=== PATIENT | male | born 1980 | race Caucasian/White ===

== ENCOUNTER 2018-02-03 10:43 | Inpatient (IN) ==
[2018-02-03] MEDS ORDERED: IOPAMIDOL 100 ML BOTTLE IV ONE (10:44)
[2018-02-03] MEDS ORDERED: ONDANSETRON 4 MG/2 ML VIAL IV ONE (11:07)
[2018-02-03] MEDS: METOPROLOL TARTRATE 5 MG/5 ML VIAL IV SCH ×3 (11:08→15:56)
[2018-02-03] MEDS ORDERED: 0.9 % SODIUM CHLORIDE 1,000 ML IV ONE ×2 (11:12→11:14)
[2018-02-03] MEDS ORDERED: cefTRIAXone 2 GM VIAL IV ONE (11:16)
[2018-02-03] MEDS ORDERED: HYDROmorphone 2 MG/ML VIAL IV PRN ×2 (11:18→20:27)
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
[2018-02-03] MEDS ORDERED: METOPROLOL TARTRATE 25 MG TABLET PO ONE (11:28)
[2018-02-03 11:29] LABS: Basophils # (Auto) 0.1 K/mcL (0.0-0.3); Basophils % (Auto) 0.5 % (0.0-2.0); Eosinophils # (Auto) 0 K/mcL (0.0-0.7); Eosinophils % (Auto) 0.2 % (0.0-7.0); Granulocytes % (Auto) 84.9 % (38.0-78.0); Lymphocytes # (Auto) 0.8 K/mcL (1.5-4.8); Lymphocytes % (Auto) 6.5 % (15.5-49.0); Mean Cell Volume 84.9 fL (80.0-100.0); Mean Corpuscular HGB Conc 33.7 g/dL (31.0-36.0); Mean Corpuscular Hemoglobin 28.6 pg (26.0-34.0); Monocytes % (Auto) 7.9 % (1.0-12.0); Platelet Count 635 K/mcL (140-440); RBC 4.47 M/mcL (4.50-5.90); Red Cell Distribution Width 18.9 % (11.5-14.5)
[2018-02-03 11:55] LABS: ALT/SGPT 11 U/l (0-40); Alkaline Phosphatase 143 U/L (39-117); Amylase 19 U/L (28-100); Blood Urea Nitrogen 8 mg/dl (6-20); Lipase 11 U/L (7-60)
[2018-02-03] MEDS ORDERED: ACETAMINOPHEN 325 MG TABLET PO ONE (11:56)
[2018-02-03 12:02] LABS: Creatine Kinase MB 1.5 ng/ml (0-4.9)
[2018-02-03 12:20] LABS: Creatine Kinase 179 IU/L (24-195)
[2018-02-03] MEDS ORDERED: POTASSIUM CHLORIDE 20 MEQ in DEXTROSE 5% IN WATER 250 ML IV ONE (12:48)
--- NOTE | 2018-02-03 13:19 | Cat Scan Report ---
CLINICAL INFORMATION: Pyelonephritis COMPARISON: 01/02/2018 TECHNIQUE: Following enteric contrast, 80 cc of Isovue-300 were injected intravenously, and 60 seconds later, 0.625 mm helical slices were obtained from the mid heart through the subtrochanteric regions. Following reconstruction, 2.5 mm sagittal, coronal and axial reformatted images were processed and reviewed at bone, lung and soft tissue windows. Five minutes later, 0.625 mm helical slices were obtained from the mid heart through the kidneys and viewed at soft tissue windows.The exam was performed using radiation dose optimization techniques including, but not limited to, automated exposure control, adjustment of the mA and/or kV according to patient size and use of iterative reconstruction technique. FINDINGS: Lung bases show no abnormality - no effusion. Visualized heart is normal. Images through the abdomen show the gallbladder and bile ducts, liver, both kidneys, adrenal glands, spleen, pancreas and aorta, including aortic branches, are normal in size, configuration and attenuation without focal lesion. Images through the pelvis show prostate, seminal vesicles to be normal. Urinary bladder is better distended on today's exam shows all only minimal thickening of the urinary bladder wall at the base region - no definite mass. The stomach, small/large bowel and appendix are normal. No free air, free fluid or adenopathy. Bone windows show posterior fusion T12-L3 with a mild chronic L1 compression fracture. There are also wide laminectomy changes at L1. Spinal stimulator electrodes and lead wires are normal IMPRESSION: 1. Both kidneys, upper collecting systems and ureters are normal. No CT evidence for pyelonephritis. 2. Urinary bladder is more optimally distended on today's CT and there is no evidence of a mass in the left lateral bladder base which was previously suspected. There is is only minimal equivocal wall thickening. Please correlate with cystoscopy examination. 3. Mild chronic L1 compression fracture with posterior fusion T12-L3 stable. Interpreted and Authenticated by: Julio Watson 02/03/18
[2018-02-03] MEDS ORDERED: 0.9 % SODIUM CHLORIDE 1,000 ML IV SCH (13:45)
[2018-02-03] MEDS ORDERED: 0.9 % SODIUM CHLORIDE 250 ML IV ONE ×2 (14:38→15:28)
[2018-02-03] MEDS ORDERED: ONDANSETRON ODT 4 MG TABLET SL PRN ×2 (14:38→15:28)
[2018-02-03] MEDS ORDERED: MAGNESIUM HYDROXIDE 30 ML ORAL.SUSP PO PRN ×2 (14:38→15:28)
[2018-02-03] MEDS ORDERED: PROCHLORPERAZINE 10 MG/2 ML VIAL IV PRN ×2 (14:38→15:28)
[2018-02-03] MEDS ORDERED: ACETAMINOPHEN 325 MG TABLET PO PRN (14:38)
[2018-02-03] MEDS ORDERED: cefTRIAXone 1 GM in DEXTROSE 5% IN WATER 50 ML IV SCH (14:45)
[2018-02-03] MEDS ORDERED: 0.9 % SODIUM CHLORIDE 500 ML IV SCH (14:46)
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
[2018-02-03] MEDS: 0.9 % SODIUM CHLORIDE 500 ML IV SCH ×2 (15:56→20:44)
[2018-02-03] MEDS ORDERED: CYCLOBENZAPRINE 10 MG TABLET PO SCH (16:00)
[2018-02-03 16:17] LABS: Appearance,Urine CLEAR; Bilirubin,Urine NEG (NEG); Color,Urine YELLOW; Glucose,Urine (UA) NEGATIVE (NEG); Leukocyte Esterase,Urine NEG /uL (NEG); Protein,Urine NEG (NEG); Specific Gravity,Urine 1.018 (1.000-1.035); Urine Blood NEG mg/dL (<0.03); Urobilinogen,Urine NEG (NEG)
[2018-02-03] MEDS: METOPROLOL SUCCINATE 25 MG TAB.XL.24H PO SCH (17:22)
[2018-02-03] MEDS: HYDROmorphone 2 MG TABLET PO PRN ×2 (17:22→22:34)
[2018-02-03] MEDS: NICOTINE 21 MG PATCH TOPICAL SCH (18:13)
[2018-02-03] MEDS: GABAPENTIN 400 MG CAPSULE PO SCH (19:58)
[2018-02-03] MEDS: CYCLOBENZAPRINE 10 MG TABLET PO PRN (19:58)
[2018-02-03] MEDS: tiZANidine 4 MG TABLET PO SCH (19:58)
[2018-02-03] MEDS: DOCUSATE SODIUM 100 MG CAPSULE PO SCH (19:59)
[2018-02-03] MEDS: SENNOSIDES 1 TABLET PO SCH (19:59)
[2018-02-03] MEDS ORDERED: HYDROmorphone 2 MG/ML VIAL ONE (20:42)
[2018-02-03] MEDS ORDERED: SENNOSIDES 1 TABLET PO SCH (21:00)
[2018-02-03] MEDS ORDERED: DOCUSATE SODIUM 100 MG CAPSULE PO SCH (21:00)
[2018-02-03] MEDS: MELOXICAM 7.5 MG TABLET PO PRN (21:04)
[2018-02-03] MEDS: DULoxetine 30 MG CAPSULE PO SCH (21:04)
[2018-02-03] MEDS ORDERED: 0.9 % SODIUM CHLORIDE 10 ML SYRINGE IV SCH (22:00)
[2018-02-03] MEDS: 0.9 % SODIUM CHLORIDE 10 ML SYRINGE IV SCH (22:34)
[2018-02-03] MEDS: ACETAMINOPHEN 325 MG TABLET PO PRN (23:43)
[2018-02-04] MEDS: 0.9 % SODIUM CHLORIDE 500 ML IV SCH ×5 (02:36→21:09)
[2018-02-04] MEDS: HYDROmorphone 2 MG TABLET PO PRN ×3 (04:04→23:33)
[2018-02-04] MEDS: CYCLOBENZAPRINE 10 MG TABLET PO PRN ×3 (04:04→23:30)
[2018-02-04] MEDS: 0.9 % SODIUM CHLORIDE 10 ML SYRINGE IV SCH ×3 (05:07→23:04)
[2018-02-04 06:44] LABS: Mean Cell Volume 87.5 fL (80.0-100.0); Mean Corpuscular HGB Conc 32.6 g/dL (31.0-36.0); Mean Corpuscular Hemoglobin 28.5 pg (26.0-34.0); Platelet Count 439 K/mcL (140-440); RBC 3.86 M/mcL (4.50-5.90); Red Cell Distribution Width 18.8 % (11.5-14.5)
[2018-02-04 07:24] LABS: ALT/SGPT 10 U/l (0-40); Albumin 3.1 gm/dL (3.2-5.2); Albumin/Globulin Ratio 0.9 (1.0-2.3); Alkaline Phosphatase 151 U/L (39-117); Bilirubin,Direct < 0.2 mg/dL (0.0-0.3); Blood Urea Nitrogen 9 mg/dl (6-20); Gamma Glutamyl Transpeptidase 75 U/L (8-61); Uric Acid 3.5 mg/dL (2.5-8.0)
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
[2018-02-04 07:45] LABS: Anisocytosis 1+ (NONE SEEN); Basophils % (Manual) 1 % (0-2); Eosinophils % (Manual) 2 % (0-7); Lymphocytes % 17 % (15-49); Monocytes % (Manual) 7 % (1-12); Platelet Estimate NORMAL (NORMAL); RBC Morphology ABNORMAL (NORMAL); Segmented Neutrophils % 73 % (38-78)
[2018-02-04] MEDS ORDERED: FESOTERODINE FUMARATE 4 MG PO SCH (09:00)
[2018-02-04] MEDS ORDERED: ENOXAPARIN 40 MG/0.4 ML SYRINGE SQ SCH (09:00)
[2018-02-04] MEDS: METOPROLOL SUCCINATE 25 MG TAB.XL.24H PO SCH (09:24)
[2018-02-04] MEDS: GABAPENTIN 400 MG CAPSULE PO SCH ×3 (09:24→20:57)
[2018-02-04] MEDS: tiZANidine 4 MG TABLET PO SCH ×3 (09:25→20:57)
[2018-02-04] MEDS: NICOTINE 21 MG PATCH TOPICAL SCH (09:25)
[2018-02-04] MEDS: DULoxetine 30 MG CAPSULE PO SCH (09:25)
[2018-02-04] MEDS: DOCUSATE SODIUM 100 MG CAPSULE PO SCH ×3 (09:25→20:57)
[2018-02-04] MEDS: cefTRIAXone 1 GM VIAL IV SCH (09:25)
[2018-02-04] MEDS: ENOXAPARIN 40 MG/0.4 ML SYRINGE SQ SCH (09:28)
[2018-02-04] MEDS: Alfuzosin Hcl [Alfuzosin Hcl Er] 10 MG PO SCH (09:39)
[2018-02-04] MEDS: ACETAMINOPHEN 325 MG TABLET PO PRN ×2 (10:43→16:28)
[2018-02-04] MEDS: rOPINIRole 0.25 MG TABLET PO SCH ×2 (10:43→20:57)
[2018-02-04] MEDS: MELOXICAM 7.5 MG TABLET PO PRN (10:47)
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
[2018-02-04] MEDS: SENNOSIDES 1 TABLET PO SCH (20:57)
[2018-02-05] MEDS: HYDROmorphone 2 MG TABLET PO PRN (03:17)
[2018-02-05] MEDS: MELOXICAM 7.5 MG TABLET PO PRN (03:18)
[2018-02-05] MEDS: 0.9 % SODIUM CHLORIDE 500 ML IV SCH (05:32)
[2018-02-05] MEDS: 0.9 % SODIUM CHLORIDE 10 ML SYRINGE IV SCH (05:33)
[2018-02-05] MEDS: tiZANidine 4 MG TABLET PO SCH (09:11)
[2018-02-05] MEDS: DULoxetine 30 MG CAPSULE PO SCH (09:11)
[2018-02-05] MEDS: GABAPENTIN 400 MG CAPSULE PO SCH (09:11)
[2018-02-05] MEDS: DOCUSATE SODIUM 100 MG CAPSULE PO SCH (09:11)
[2018-02-05] MEDS: METOPROLOL SUCCINATE 25 MG TAB.XL.24H PO SCH (09:11)
[2018-02-05] MEDS: ENOXAPARIN 40 MG/0.4 ML SYRINGE SQ SCH (09:11)
[2018-02-05] MEDS: rOPINIRole 0.25 MG TABLET PO SCH (09:12)
[2018-02-05] MEDS: cefTRIAXone 1 GM VIAL IV SCH (09:12)
[2018-02-05] MEDS: Alfuzosin Hcl [Alfuzosin Hcl Er] 10 MG PO SCH (09:13)
[2018-02-05] MEDS: CYCLOBENZAPRINE 10 MG TABLET PO PRN (09:28)
== END 2018-02-05 10:03 | disposition home or self-care (01) | DRG 872 ==
LOC: ED 10:43 → MEDSUR 15:00
PROVIDERS: ADMIT Internal Medicine; ATTEND Internal Medicine